=== PATIENT | female | born 1985 | race Hispanic/Latino ===

== ENCOUNTER 2022-07-27 23:00 | Emergency (ER) | payer SELFPAY ==
[~2022-07-27] VITALS: Ht 152.4 cm; Wt 101.2 kg
[2022-07-27] MEDS ORDERED: FAMOTIDINE 20 MG/2 ML VIAL IV STA (23:28)
[2022-07-27] MEDS ORDERED: DIPHENHYDRAMINE HCL INJ 50 MG/ML VIAL IV ONE (23:30)
[2022-07-27] MEDS ORDERED: SODIUM CHLORIDE 0.9% 1000ML 1,000 ML IV SCH (23:30)
[2022-07-27] MEDS ORDERED: METHYLPREDNISOLONE SOD SUCC 125 MG/2ML VIAL IV ONE (23:30)
[2022-07-27] MEDS ORDERED: METHYLPREDNISOLONE SOD SUCC 125 MG/2ML VIAL ONE (23:43)
[2022-07-27] MEDS ORDERED: SODIUM CHLORIDE 0.9% 1000ML 1,000 ML ONE (23:43)
[2022-07-27] MEDS ORDERED: FAMOTIDINE 20 MG/2 ML VIAL IV ONE (23:43)
[2022-07-27] MEDS ORDERED: DIPHENHYDRAMINE HCL INJ 50 MG/ML VIAL ONE (23:44)
[2022-07-28] MEDS ORDERED: PREDNISONE20 MG PO (00:53)
[2022-07-28] MEDS ORDERED: FAMOTIDINE40 MG PO (00:54)
[2022-07-28 01:12] VITALS: BP 139/76
== END 2022-07-28 01:15 | disposition home or self-care (01) ==
LOC: FSED 23:15
DX: L50.9 Urticaria, unspecified (principal); T78.40XA Allergy, unspecified, initial encounter
CPT/HCPCS: 99283; J1200; J2930; J7030